=== PATIENT | male | born 1965 | race Caucasian/White ===

== ENCOUNTER 2019-04-21 09:04 | Inpatient (IN) | payer MEDICAID ==
[2019-04-21] MEDS: ONDANSETRON 4 MG INJ IV ×2 (10:07→14:52)
[2019-04-21] MEDS: morphine 4 MG/ML VIAL IV ×4 (10:07→21:33)
[2019-04-21 10:09] LABS: ADD MAN DIFF? NO
[2019-04-21 10:11] LABS: BASOPHILS % 0.3 % (0.0-2.0); EOSINOPHILS % 0.2 % (0.0-7.0); HEMATOCRIT 45.3 % (42.0-52.0); HEMOGLOBIN 15.7 g/dl (14.0-18.0); LYMPHOCYTES # 0.6 10^3/ul (0.8-2.9); LYMPHOCYTES % 4.9 % (15.0-51.0); MEAN CORPUSCULAR HEMOGLOBIN 32.8 pg (29.0-33.0); MEAN CORPUSCULAR HGB CONC 34.7 g/dl (32.0-37.0); MEAN CORPUSCULAR VOLUME 94.6 fl (82.0-101.0); MEAN PLATELET VOLUME 9.5 fl (7.4-10.4); NEUTROPHIL # 11.2 10^3/ul (1.6-7.5); NEUTROPHILS % 85.8 % (39.0-77.0); PLATELET COUNT 240 10^3/UL (140-415); RED BLOOD COUNT 4.79 10^6/ul (4.70-6.10); RED CELL DISTRIBUTION WIDTH 11.5 % (11.5-14.5)
[2019-04-21] MEDS: SOD CHLORIDE 0.9% 200 ML IV (10:14)
[2019-04-21 10:18] LABS: ADD UMIC YES; UR ASCORBIC ACID 40 mg/dL (NEGATIVE); UR BILIRUBIN (Dip) NEGATIVE (NEGATIVE); UR BLOOD (Dip) NEGATIVE (NEGATIVE); UR CLARITY CLEAR (CLEAR); UR COLOR AMBER (YELLOW); UR GLUCOSE (Dip) NEGATIVE (NEGATIVE); UR KETONES (Dip) 1+ mg/dL (NEGATIVE); UR LEUKOCYTE ESTERASE (Dip) NEGATIVE Leu/ul (NEGATIVE); UR MUCUS MANY /HPF (NONE SEEN); UR NITRITE (Dip) NEGATIVE (NEGATIVE); UR RBC 0 /HPF (0-5); UR SPECIFIC GRAVITY (Dip) 1.038 (1.003-1.030); UR TOTAL PROTEIN (Dip) 2+ mg/dl (NEGATIVE); UR UROBILINOGEN (Dip) NEGATIVE (NEGATIVE); UR WBC 1 /HPF (0-5)
[2019-04-21 10:29] LABS: ALANINE AMINOTRANSFERASE 115 IU/L (13-69); ALBUMIN 3.9 g/dl (3.3-4.9); ALBUMIN/GLOBULIN RATIO 1.05; ALKALINE PHOSPHATASE 75 IU/L (42-121); ANION GAP 11 (5-13); ASPARTATE AMINO TRANSFERASE 31 IU/L (15-46); BILIRUBIN,INDIRECT 1.1 mg/dl (0-1.1); BILIRUBIN,TOTAL 1.1 mg/dl (0.2-1.3); BLOOD UREA NITROGEN 13 mg/dl (7-20); CALCIUM 9.6 mg/dl (8.4-10.2); CARBON DIOXIDE 28 mmol/L (21-31); CHLORIDE 99 mmol/L (97-110); CREATININE 1.01 mg/dl (0.61-1.24); Estimated GFR > 60 mL/min (>60); GLUCOSE 122 mg/dl (70-220); LIPASE 47 U/L (23-300); POTASSIUM 3.7 mmol/L (3.5-5.1); SODIUM 138 mmol/L (135-144); TOTAL PROTEIN 7.6 g/dl (6.1-8.1)
[2019-04-21] MEDS: SOD CHLORIDE 0.9% 500 ML IV (11:00)
[2019-04-21] MEDS: PIPER-TAZO 3.375 GM IV (PMX) 100 ML IVPB ×2 (11:27→21:38)
[2019-04-21] MEDS ORDERED: ACETAMINOPHEN 325 MG TAB PO (12:00)
[2019-04-21] MEDS ORDERED: LORAZEPAM 2 MG INJ IV (12:30)
[2019-04-21] MEDS ORDERED: ONDANSETRON 4 MG INJ IV (12:30)
[2019-04-21] MEDS: metroNIDAZOLE 500 MG/NS (PMX) 100 ML IVPB (12:35)
[2019-04-21] MEDS: FAMOTIDINE 20 MG INJ IV ×2 (12:59→21:14)
[2019-04-21] MEDS: DEXTROSE 5%-0.45% NACL 1,000 ML IV ×2 (13:50→21:14)
[2019-04-21] MEDS ORDERED: PIPER-TAZO 3.375 GM IV (PMX) 100 ML (19:55)
[2019-04-21] MEDS ORDERED: DOCUSATE SODIUM 100 MG CAP PO (19:55)
[2019-04-21] MEDS: DOCUSATE SODIUM 100 MG CAP PO (21:00)
[2019-04-22] MEDS: morphine 4 MG/ML VIAL IV ×6 (01:42→23:39)
[2019-04-22] MEDS: DEXTROSE 5%-0.45% NACL 1,000 ML IV ×4 (05:21→23:40)
[2019-04-22] MEDS: PIPER-TAZO 3.375 GM IV (PMX) 100 ML IVPB ×3 (05:21→22:05)
[2019-04-22 05:47] LABS: ADD MAN DIFF? NO
[2019-04-22 05:51] LABS: WHITE BLOOD COUNT 10.1 10^3/ul (4.8-10.8)
[2019-04-22 05:51] LABS: BASOPHILS % 0.4 % (0.0-2.0); EOSINOPHILS # 0.1 10^3/ul (0.0-0.5); HEMOGLOBIN 14.1 g/dl (14.0-18.0); LYMPHOCYTES # 0.9 10^3/ul (0.8-2.9); LYMPHOCYTES % 9.3 % (15.0-51.0); MEAN CORPUSCULAR HEMOGLOBIN 32.4 pg (29.0-33.0); MEAN CORPUSCULAR HGB CONC 33.6 g/dl (32.0-37.0); MEAN CORPUSCULAR VOLUME 96.6 fl (82.0-101.0); MEAN PLATELET VOLUME 9.2 fl (7.4-10.4); MONOCYTES % 9.9 % (0.0-11.0); NEUTROPHIL # 7.9 10^3/ul (1.6-7.5); NEUTROPHILS % 78.7 % (39.0-77.0); PLATELET COUNT 219 10^3/UL (140-415); RED BLOOD COUNT 4.35 10^6/ul (4.70-6.10); RED CELL DISTRIBUTION WIDTH 11.5 % (11.5-14.5)
[2019-04-22 06:38] LABS: ALANINE AMINOTRANSFERASE 82 IU/L (13-69); ALBUMIN 3.2 g/dl (3.3-4.9); ALBUMIN/GLOBULIN RATIO 0.96; ALKALINE PHOSPHATASE 59 IU/L (42-121); ANION GAP 7 (5-13); ASPARTATE AMINO TRANSFERASE 28 IU/L (15-46); BILIRUBIN,INDIRECT 0.9 mg/dl (0-1.1); BILIRUBIN,TOTAL 0.9 mg/dl (0.2-1.3); BLOOD UREA NITROGEN 8 mg/dl (7-20); CALCIUM 8.4 mg/dl (8.4-10.2); CARBON DIOXIDE 31 mmol/L (21-31); CHLORIDE 98 mmol/L (97-110); CREATININE 0.86 mg/dl (0.61-1.24); Estimated GFR > 60 mL/min (>60); GLUCOSE 123 mg/dl (70-220); MAGNESIUM 1.9 mg/dl (1.7-2.5); PHOSPHORUS 3.2 mg/dl (2.5-4.9); POTASSIUM 3.3 mmol/L (3.5-5.1); SODIUM 136 mmol/L (135-144); TOTAL PROTEIN 6.5 g/dl (6.1-8.1)
[2019-04-22] MEDS: DOCUSATE SODIUM 100 MG CAP PO ×2 (08:37→22:08)
[2019-04-22] MEDS: FAMOTIDINE 20 MG INJ IV ×2 (08:39→22:05)
[2019-04-22] MEDS: ACETAMINOPHEN 325 MG TAB PO (15:39)
[2019-04-23] MEDS: morphine 4 MG/ML VIAL IV ×5 (03:53→20:54)
[2019-04-23 05:22] LABS: ADD MAN DIFF? NO
[2019-04-23 05:24] LABS: WHITE BLOOD COUNT 10.7 10^3/ul (4.8-10.8)
[2019-04-23 05:24] LABS: BASOPHILS % 0.4 % (0.0-2.0); EOSINOPHILS # 0.1 10^3/ul (0.0-0.5); EOSINOPHILS % 0.6 % (0.0-7.0); HEMATOCRIT 38.9 % (42.0-52.0); HEMOGLOBIN 13.5 g/dl (14.0-18.0); LYMPHOCYTES # 0.8 10^3/ul (0.8-2.9); LYMPHOCYTES % 7.4 % (15.0-51.0); MEAN CORPUSCULAR HEMOGLOBIN 32.8 pg (29.0-33.0); MEAN CORPUSCULAR HGB CONC 34.7 g/dl (32.0-37.0); MEAN CORPUSCULAR VOLUME 94.4 fl (82.0-101.0); MEAN PLATELET VOLUME 9.1 fl (7.4-10.4); MONOCYTE # 1.2 10^3/ul (0.3-0.9); MONOCYTES % 11.5 % (0.0-11.0); NEUTROPHIL # 8.5 10^3/ul (1.6-7.5); NEUTROPHILS % 79.1 % (39.0-77.0); PLATELET COUNT 247 10^3/UL (140-415); RED BLOOD COUNT 4.12 10^6/ul (4.70-6.10); RED CELL DISTRIBUTION WIDTH 11.3 % (11.5-14.5)
[2019-04-23 05:49] LABS: ALANINE AMINOTRANSFERASE 73 IU/L (13-69); ALBUMIN 3.1 g/dl (3.3-4.9); ALBUMIN/GLOBULIN RATIO 0.93; ALKALINE PHOSPHATASE 69 IU/L (42-121); ANION GAP 6 (5-13); ASPARTATE AMINO TRANSFERASE 25 IU/L (15-46); BILIRUBIN,INDIRECT 0.7 mg/dl (0-1.1); BILIRUBIN,TOTAL 0.7 mg/dl (0.2-1.3); BLOOD UREA NITROGEN 6 mg/dl (7-20); CALCIUM 8.5 mg/dl (8.4-10.2); CARBON DIOXIDE 31 mmol/L (21-31); CHLORIDE 98 mmol/L (97-110); CREATININE 0.85 mg/dl (0.61-1.24); Estimated GFR > 60 mL/min (>60); GLUCOSE 119 mg/dl (70-220); POTASSIUM 3.4 mmol/L (3.5-5.1); SODIUM 135 mmol/L (135-144); TOTAL PROTEIN 6.4 g/dl (6.1-8.1)
[2019-04-23] MEDS: PIPER-TAZO 3.375 GM IV (PMX) 100 ML IVPB ×3 (06:10→22:23)
[2019-04-23] MEDS: FAMOTIDINE 20 MG INJ IV (08:31)
[2019-04-23] MEDS: DEXTROSE 5%-0.45% NACL 1,000 ML IV ×2 (08:31→20:30)
[2019-04-23] MEDS: DOCUSATE SODIUM 100 MG CAP PO ×2 (08:34→20:46)
[2019-04-23] MEDS: POTASSIUM CHLORIDE (SR) 20 MEQ TAB PO ×2 (11:55→15:57)
[2019-04-23] MEDS: CHLORDIAZEPOXIDE 25 MG CAP PO ×2 (12:24→20:46)
[2019-04-23] MEDS: MULTIVITAMINS 10 ML, THIAMINE 100 MG, FOLIC ACID 1 MG in SOD CHLORIDE 0.9% 1,000 ML IVPB (12:52)
[2019-04-23] MEDS: FAMOTIDINE 20 MG TAB PO (20:46)
[2019-04-24] MEDS: morphine 4 MG/ML VIAL IV ×6 (00:57→23:16)
[2019-04-24] MEDS: DEXTROSE 5%-0.45% NACL 1,000 ML IV (05:14)
[2019-04-24] MEDS: PIPER-TAZO 3.375 GM IV (PMX) 100 ML IVPB ×3 (05:14→22:45)
[2019-04-24 07:16] LABS: ADD MAN DIFF? NO
[2019-04-24 07:24] LABS: WHITE BLOOD COUNT 12.8 10^3/ul (4.8-10.8)
[2019-04-24 07:24] LABS: BASOPHIL # 0.1 10^3/ul (0.0-0.1); BASOPHILS % 0.5 % (0.0-2.0); EOSINOPHILS # 0.1 10^3/ul (0.0-0.5); EOSINOPHILS % 0.5 % (0.0-7.0); HEMATOCRIT 39.9 % (42.0-52.0); HEMOGLOBIN 13.8 g/dl (14.0-18.0); LYMPHOCYTES % 7.6 % (15.0-51.0); MEAN CORPUSCULAR HEMOGLOBIN 32.4 pg (29.0-33.0); MEAN CORPUSCULAR HGB CONC 34.6 g/dl (32.0-37.0); MEAN CORPUSCULAR VOLUME 93.7 fl (82.0-101.0); MEAN PLATELET VOLUME 9.1 fl (7.4-10.4); MONOCYTE # 1.5 10^3/ul (0.3-0.9); MONOCYTES % 11.6 % (0.0-11.0); NEUTROPHIL # 9.8 10^3/ul (1.6-7.5); NEUTROPHILS % 76.8 % (39.0-77.0); PLATELET COUNT 291 10^3/UL (140-415); RED BLOOD COUNT 4.26 10^6/ul (4.70-6.10); RED CELL DISTRIBUTION WIDTH 11.2 % (11.5-14.5)
[2019-04-24 07:51] LABS: ANION GAP 7 (5-13); BLOOD UREA NITROGEN 5 mg/dl (7-20); CALCIUM 8.7 mg/dl (8.4-10.2); CARBON DIOXIDE 29 mmol/L (21-31); CHLORIDE 98 mmol/L (97-110); CREATININE 0.86 mg/dl (0.61-1.24); Estimated GFR > 60 mL/min (>60); GLUCOSE 152 mg/dl (70-220); PHOSPHORUS 3.4 mg/dl (2.5-4.9); POTASSIUM 3.6 mmol/L (3.5-5.1); SODIUM 134 mmol/L (135-144)
[2019-04-24] MEDS: MULTIVITAMINS 10 ML, THIAMINE 100 MG, FOLIC ACID 1 MG in SOD CHLORIDE 0.9% 1,000 ML IVPB (08:45)
[2019-04-24] MEDS: DOCUSATE SODIUM 100 MG CAP PO ×2 (08:45→20:06)
[2019-04-24] MEDS: FAMOTIDINE 20 MG TAB PO ×2 (08:45→20:06)
[2019-04-24] MEDS: CHLORDIAZEPOXIDE 25 MG CAP PO ×2 (08:45→20:05)
[2019-04-24] MEDS ORDERED: DOCUSATE SODIUM 100 MG CAP PO (12:30)
[2019-04-24 12:42] LABS: HEPATITIS B SURFACE ANTIGEN NEGATIVE (NEGATIVE)
[2019-04-24 12:59] LABS: HEPATITIS C VIRAL ANTIBODY NEGATIVE (NEGATIVE)
[2019-04-24] MEDS: POTASSIUM CHLORIDE (SR) 20 MEQ TAB PO (14:26)
[2019-04-24] MEDS: ACETAMINOPHEN 325 MG TAB PO (20:06)
[2019-04-25 00:12] LABS: ADD UMIC NO; UR ASCORBIC ACID NEGATIVE (NEGATIVE); UR BILIRUBIN (Dip) NEGATIVE (NEGATIVE); UR BLOOD (Dip) NEGATIVE (NEGATIVE); UR CLARITY CLEAR (CLEAR); UR COLOR YELLOW (YELLOW); UR GLUCOSE (Dip) NEGATIVE (NEGATIVE); UR KETONES (Dip) NEGATIVE (NEGATIVE); UR LEUKOCYTE ESTERASE (Dip) NEGATIVE Leu/ul (NEGATIVE); UR NITRITE (Dip) NEGATIVE (NEGATIVE); UR TOTAL PROTEIN (Dip) NEGATIVE (NEGATIVE); UR UROBILINOGEN (Dip) 2+ mg/dL (NEGATIVE)
[2019-04-25] MEDS ORDERED: VANCOMYCIN IV PER PHARMACY XX (02:30)
[2019-04-25] MEDS: ACETAMINOPHEN 325 MG TAB PO ×2 (02:32→15:36)
[2019-04-25] MEDS: VANCOMYCIN 1.5 GM/NS 250 ML 250 ML IVPB (03:02)
[2019-04-25] MEDS: morphine 4 MG/ML VIAL IV ×5 (03:25→22:48)
[2019-04-25 05:45] LABS: ADD MAN DIFF? NO
[2019-04-25 05:54] LABS: WHITE BLOOD COUNT 15.7 10^3/ul (4.8-10.8)
[2019-04-25 05:54] LABS: ABNORMAL IP MESSAGE 1; BASOPHIL # 0.1 10^3/ul (0.0-0.1); BASOPHILS % 0.3 % (0.0-2.0); EOSINOPHILS # 0.1 10^3/ul (0.0-0.5); EOSINOPHILS % 0.4 % (0.0-7.0); HEMATOCRIT 42.5 % (42.0-52.0); HEMOGLOBIN 14.6 g/dl (14.0-18.0); LYMPHOCYTES # 1.3 10^3/ul (0.8-2.9); LYMPHOCYTES % 8.4 % (15.0-51.0); MEAN CORPUSCULAR HEMOGLOBIN 32.2 pg (29.0-33.0); MEAN CORPUSCULAR HGB CONC 34.4 g/dl (32.0-37.0); MEAN CORPUSCULAR VOLUME 93.8 fl (82.0-101.0); MONOCYTE # 1.7 10^3/ul (0.3-0.9); MONOCYTES % 10.5 % (0.0-11.0); NEUTROPHIL # 12.1 10^3/ul (1.6-7.5); NEUTROPHILS % 77.6 % (39.0-77.0); PLATELET COUNT 308 10^3/UL (140-415); POSITIVE DIFF @See below; RED BLOOD COUNT 4.53 10^6/ul (4.70-6.10); RED CELL DISTRIBUTION WIDTH 11.4 % (11.5-14.5)
[2019-04-25 06:18] LABS: ANION GAP 8 (5-13); BLOOD UREA NITROGEN 5 mg/dl (7-20); CARBON DIOXIDE 29 mmol/L (21-31); CHLORIDE 98 mmol/L (97-110); CREATININE 0.81 mg/dl (0.61-1.24); Estimated GFR > 60 mL/min (>60); GLUCOSE 103 mg/dl (70-220); POTASSIUM 3.8 mmol/L (3.5-5.1); SODIUM 135 mmol/L (135-144)
[2019-04-25] MEDS: PIPER-TAZO 3.375 GM IV (PMX) 100 ML IVPB ×3 (06:30→22:32)
[2019-04-25 07:21] LABS: ERYTHROCYTE SEDIMENTATION RATE 46 mm/Hr (0-20)
[2019-04-25] MEDS: IOHEXOL 300MG/ML 150 ML BTL (09:08)
[2019-04-25] MEDS: SOD CHLORIDE 0.9% 100 ML (09:08)
[2019-04-25] MEDS: MULTIVITAMINS 10 ML, THIAMINE 100 MG, FOLIC ACID 1 MG in SOD CHLORIDE 0.9% 1,000 ML IVPB (09:55)
[2019-04-25] MEDS: DOCUSATE SODIUM 100 MG CAP PO ×2 (09:55→21:58)
[2019-04-25] MEDS: CHLORDIAZEPOXIDE 25 MG CAP PO ×2 (09:55→21:58)
[2019-04-25] MEDS: FAMOTIDINE 20 MG TAB PO ×2 (09:55→21:59)
[2019-04-25] MEDS: VANCOMYCIN 1 GM 250 ML IVPB (16:17)
[2019-04-26] MEDS: ACETAMINOPHEN 325 MG TAB PO (02:48)
[2019-04-26] MEDS: VANCOMYCIN 1 GM 250 ML IVPB ×2 (02:49→17:03)
[2019-04-26] MEDS: morphine 4 MG/ML VIAL IV ×3 (03:08→20:40)
[2019-04-26 05:20] LABS: ADD MAN DIFF? NO
[2019-04-26 05:30] LABS: WHITE BLOOD COUNT 17.1 10^3/ul (4.8-10.8)
[2019-04-26 05:30] LABS: BASOPHIL # 0.1 10^3/ul (0.0-0.1); BASOPHILS % 0.4 % (0.0-2.0); EOSINOPHILS # 0.2 10^3/ul (0.0-0.5); EOSINOPHILS % 1.1 % (0.0-7.0); HEMATOCRIT 37.9 % (42.0-52.0); LYMPHOCYTES # 1.3 10^3/ul (0.8-2.9); LYMPHOCYTES % 7.9 % (15.0-51.0); MEAN CORPUSCULAR HEMOGLOBIN 32.1 pg (29.0-33.0); MEAN CORPUSCULAR HGB CONC 34.3 g/dl (32.0-37.0); MEAN CORPUSCULAR VOLUME 93.6 fl (82.0-101.0); MEAN PLATELET VOLUME 9.1 fl (7.4-10.4); MONOCYTE # 1.3 10^3/ul (0.3-0.9); MONOCYTES % 7.7 % (0.0-11.0); NEUTROPHIL # 13.8 10^3/ul (1.6-7.5); PLATELET COUNT 233 10^3/UL (140-415); RED BLOOD COUNT 4.05 10^6/ul (4.70-6.10); RED CELL DISTRIBUTION WIDTH 11.3 % (11.5-14.5)
[2019-04-26] MEDS: PIPER-TAZO 3.375 GM IV (PMX) 100 ML IVPB ×3 (05:36→22:01)
[2019-04-26 05:52] LABS: ALANINE AMINOTRANSFERASE 61 IU/L (13-69); ALBUMIN 2.9 g/dl (3.3-4.9); ALBUMIN/GLOBULIN RATIO 0.96; ALKALINE PHOSPHATASE 95 IU/L (42-121); ANION GAP 7 (5-13); ASPARTATE AMINO TRANSFERASE 33 IU/L (15-46); BILIRUBIN,INDIRECT 0.7 mg/dl (0-1.1); BILIRUBIN,TOTAL 0.7 mg/dl (0.2-1.3); BLOOD UREA NITROGEN 6 mg/dl (7-20); CALCIUM 8.3 mg/dl (8.4-10.2); CARBON DIOXIDE 28 mmol/L (21-31); CHLORIDE 100 mmol/L (97-110); CREATININE 0.71 mg/dl (0.61-1.24); Estimated GFR > 60 mL/min (>60); GLUCOSE 87 mg/dl (70-220); POTASSIUM 3.3 mmol/L (3.5-5.1); SODIUM 135 mmol/L (135-144); TOTAL PROTEIN 5.9 g/dl (6.1-8.1)
[2019-04-26 08:01] LABS: ERYTHROCYTE SEDIMENTATION RATE 51 mm/Hr (0-20)
[2019-04-26] MEDS: DOCUSATE SODIUM 100 MG CAP PO ×2 (08:39→20:42)
[2019-04-26] MEDS: CHLORDIAZEPOXIDE 25 MG CAP PO (08:39)
[2019-04-26] MEDS: MULTIVITAMINS 10 ML, THIAMINE 100 MG, FOLIC ACID 1 MG in SOD CHLORIDE 0.9% 1,000 ML IVPB (08:39)
[2019-04-26] MEDS: THIAMINE 100 MG TAB PO (08:39)
[2019-04-26] MEDS: FAMOTIDINE 20 MG TAB PO ×2 (08:39→20:42)
[2019-04-26] MEDS ORDERED: DIPHENHYDRAMINE 50 MG INJ IV (11:30)
[2019-04-26] MEDS: metroNIDAZOLE 500 MG/NS (PMX) 100 ML IVPB ×2 (11:34→22:49)
[2019-04-26] MEDS: SOD CHLORIDE 0.9% 1,000 ML IV ×2 (14:07→19:30)
[2019-04-26] MEDS: DIPHENHYDRAMINE 1%/ZINC 28.3 GM CR TOP ×2 (14:08→17:03)
[2019-04-26 15:36] LABS: VANCOMYCIN,TROUGH < 5.0 ug/ml (10.0-20.0)
[2019-04-26] MEDS: POTASSIUM CHLORIDE (SR) 20 MEQ TAB PO (17:02)
[2019-04-27] MEDS: DIPHENHYDRAMINE 1%/ZINC 28.3 GM CR TOP ×4 (00:32→17:42)
[2019-04-27] MEDS: VANCOMYCIN 1 GM 250 ML IVPB ×3 (01:29→16:15)
[2019-04-27] MEDS: morphine 4 MG/ML VIAL IV (02:17)
[2019-04-27] MEDS: SOD CHLORIDE 0.9% 1,000 ML IV ×3 (03:30→19:30)
[2019-04-27] MEDS: metroNIDAZOLE 500 MG/NS (PMX) 100 ML IVPB ×2 (05:11→14:27)
[2019-04-27 06:08] LABS: ADD MAN DIFF? NO
[2019-04-27 06:30] LABS: WHITE BLOOD COUNT 14.8 10^3/ul (4.8-10.8)
[2019-04-27 06:30] LABS: BASOPHIL # 0.1 10^3/ul (0.0-0.1); BASOPHILS % 0.5 % (0.0-2.0); EOSINOPHILS # 0.2 10^3/ul (0.0-0.5); EOSINOPHILS % 1.5 % (0.0-7.0); HEMATOCRIT 38.6 % (42.0-52.0); HEMOGLOBIN 13.2 g/dl (14.0-18.0); LYMPHOCYTES # 1.1 10^3/ul (0.8-2.9); LYMPHOCYTES % 7.7 % (15.0-51.0); MEAN CORPUSCULAR HEMOGLOBIN 32.8 pg (29.0-33.0); MEAN CORPUSCULAR HGB CONC 34.2 g/dl (32.0-37.0); MEAN PLATELET VOLUME 9.6 fl (7.4-10.4); MONOCYTE # 0.9 10^3/ul (0.3-0.9); MONOCYTES % 5.9 % (0.0-11.0); NEUTROPHIL # 12.2 10^3/ul (1.6-7.5); NEUTROPHILS % 82.6 % (39.0-77.0); PLATELET COUNT 238 10^3/UL (140-415); RED BLOOD COUNT 4.02 10^6/ul (4.70-6.10); RED CELL DISTRIBUTION WIDTH 11.2 % (11.5-14.5)
[2019-04-27] MEDS: PIPER-TAZO 3.375 GM IV (PMX) 100 ML IVPB ×2 (06:33→13:28)
[2019-04-27 06:37] LABS: ANION GAP 4 (5-13); BLOOD UREA NITROGEN 7 mg/dl (7-20); CALCIUM 8.1 mg/dl (8.4-10.2); CARBON DIOXIDE 28 mmol/L (21-31); CHLORIDE 104 mmol/L (97-110); CREATININE 0.62 mg/dl (0.61-1.24); Estimated GFR > 60 mL/min (>60); GLUCOSE 136 mg/dl (70-220); POTASSIUM 3.3 mmol/L (3.5-5.1); SODIUM 136 mmol/L (135-144)
[2019-04-27] MEDS: FAMOTIDINE 20 MG TAB PO ×2 (08:50→20:46)
[2019-04-27] MEDS: FOLIC ACID 1 MG TAB PO (08:50)
[2019-04-27] MEDS: THIAMINE 100 MG TAB PO (08:50)
[2019-04-27] MEDS: DOCUSATE SODIUM 100 MG CAP PO ×2 (08:56→20:48)
[2019-04-27] MEDS: POTASSIUM CHLORIDE (SR) 20 MEQ TAB PO (14:27)
[2019-04-27] MEDS ORDERED: HYDROCORTISONE 1% 28 GM CR TOP (15:00)
[2019-04-27] MEDS: HYDROCORTISONE 1% 28 GM CR TOP ×2 (18:21→22:14)
[2019-04-27] MEDS: FLUCONAZOLE 100 MG/50 ML (PMX) 50 ML IVPB (19:00)
[2019-04-27] MEDS: MEROPENEM 1 GM/50ML(PMX) 50 ML IVPB (22:08)
[2019-04-28] MEDS: DIPHENHYDRAMINE 1%/ZINC 28.3 GM CR TOP ×4 (00:08→17:48)
[2019-04-28 01:08] LABS: VANCOMYCIN,TROUGH 9.7 ug/ml (10.0-20.0)
[2019-04-28] MEDS: VANCOMYCIN 1 GM 250 ML IVPB (01:23)
[2019-04-28] MEDS: SOD CHLORIDE 0.9% 1,000 ML IV ×3 (03:52→17:48)
[2019-04-28] MEDS: MEROPENEM 1 GM/50ML(PMX) 50 ML IVPB ×3 (05:54→22:20)
[2019-04-28 06:01] LABS: ADD MAN DIFF? NO
[2019-04-28 06:04] LABS: BASOPHIL # 0.1 10^3/ul (0.0-0.1); BASOPHILS % 0.5 % (0.0-2.0); EOSINOPHILS # 0.3 10^3/ul (0.0-0.5); EOSINOPHILS % 2.4 % (0.0-7.0); HEMATOCRIT 40.9 % (42.0-52.0); HEMOGLOBIN 13.8 g/dl (14.0-18.0); LYMPHOCYTES # 1.2 10^3/ul (0.8-2.9); LYMPHOCYTES % 10.4 % (15.0-51.0); MEAN CORPUSCULAR HEMOGLOBIN 32.3 pg (29.0-33.0); MEAN CORPUSCULAR HGB CONC 33.7 g/dl (32.0-37.0); MEAN CORPUSCULAR VOLUME 95.8 fl (82.0-101.0); MEAN PLATELET VOLUME 9.1 fl (7.4-10.4); MONOCYTE # 0.8 10^3/ul (0.3-0.9); MONOCYTES % 6.8 % (0.0-11.0); NEUTROPHIL # 9.2 10^3/ul (1.6-7.5); PLATELET COUNT 318 10^3/UL (140-415); RED BLOOD COUNT 4.27 10^6/ul (4.70-6.10); RED CELL DISTRIBUTION WIDTH 11.3 % (11.5-14.5)
[2019-04-28 06:04] LABS: WHITE BLOOD COUNT 11.8 10^3/ul (4.8-10.8)
[2019-04-28 06:29] LABS: ANION GAP 8 (5-13); BLOOD UREA NITROGEN 4 mg/dl (7-20); CALCIUM 8.8 mg/dl (8.4-10.2); CARBON DIOXIDE 28 mmol/L (21-31); CHLORIDE 106 mmol/L (97-110); CREATININE 0.72 mg/dl (0.61-1.24); Estimated GFR > 60 mL/min (>60); GLUCOSE 103 mg/dl (70-220); MAGNESIUM 2.2 mg/dl (1.7-2.5); POTASSIUM 3.7 mmol/L (3.5-5.1); SODIUM 142 mmol/L (135-144)
[2019-04-28 06:30] LABS: INR 1.15; PROTIME 14.8 Sec (11.9-14.9); PT RATIO 1.2
[2019-04-28] MEDS: THIAMINE 100 MG TAB PO (08:03)
[2019-04-28] MEDS: FAMOTIDINE 20 MG TAB PO ×2 (08:03→20:41)
[2019-04-28] MEDS: DOCUSATE SODIUM 100 MG CAP PO ×2 (08:03→20:40)
[2019-04-28] MEDS: FOLIC ACID 1 MG TAB PO (08:03)
[2019-04-28] MEDS: VANCOMYCIN 1.25 GM/NS 250 ML 250 ML IVPB ×2 (08:51→17:48)
[2019-04-28] MEDS: HYDROCORTISONE 1% 28 GM CR TOP ×2 (08:53→20:41)
[2019-04-28] MEDS: MIDAZOLAM 1 MG/ML 2 ML INJ (09:08)
[2019-04-28] MEDS: FENTAnyl 50 MCG/ML VIAL ×2 (09:08→13:49)
[2019-04-28] MEDS: LIDOCAINE 1% (MDV) 20 ML INJ ×2 (09:25→15:12)
[2019-04-28] MEDS: FLUCONAZOLE 100 MG/50 ML (PMX) 50 ML IVPB (16:32)
[2019-04-28] MEDS: morphine 4 MG/ML VIAL IV (17:48)
[2019-04-28] MEDS: ACETAMINOPHEN 325 MG TAB PO (20:40)
[2019-04-29] MEDS: DIPHENHYDRAMINE 1%/ZINC 28.3 GM CR TOP ×4 (00:11→17:36)
[2019-04-29] MEDS: SOD CHLORIDE 0.9% 1,000 ML IV (00:13)
[2019-04-29] MEDS: VANCOMYCIN 1.25 GM/NS 250 ML 250 ML IVPB ×3 (01:14→17:37)
[2019-04-29] MEDS: ALTEPLASE (CATHFLO) 2 MG INJ CATHETER (06:21)
[2019-04-29] MEDS: MEROPENEM 1 GM/50ML(PMX) 50 ML IVPB ×3 (06:21→21:34)
[2019-04-29] MEDS: THIAMINE 100 MG TAB PO (09:07)
[2019-04-29] MEDS: FOLIC ACID 1 MG TAB PO (09:07)
[2019-04-29] MEDS: DOCUSATE SODIUM 100 MG CAP PO ×2 (09:07→21:34)
[2019-04-29] MEDS: FAMOTIDINE 20 MG TAB PO ×2 (09:07→21:34)
[2019-04-29] MEDS: HYDROCORTISONE 1% 28 GM CR TOP ×2 (09:07→21:35)
[2019-04-29 14:10] LABS: ADD MAN DIFF? NO
[2019-04-29 14:12] LABS: WHITE BLOOD COUNT 9.4 10^3/ul (4.8-10.8)
[2019-04-29 14:12] LABS: BASOPHIL # 0.1 10^3/ul (0.0-0.1); EOSINOPHILS # 0.3 10^3/ul (0.0-0.5); EOSINOPHILS % 3.1 % (0.0-7.0); HEMATOCRIT 41.9 % (42.0-52.0); HEMOGLOBIN 14.2 g/dl (14.0-18.0); LYMPHOCYTES # 1.1 10^3/ul (0.8-2.9); LYMPHOCYTES % 11.7 % (15.0-51.0); MEAN CORPUSCULAR HEMOGLOBIN 32.3 pg (29.0-33.0); MEAN CORPUSCULAR HGB CONC 33.9 g/dl (32.0-37.0); MEAN CORPUSCULAR VOLUME 95.4 fl (82.0-101.0); MEAN PLATELET VOLUME 9.2 fl (7.4-10.4); MONOCYTE # 0.6 10^3/ul (0.3-0.9); MONOCYTES % 6.5 % (0.0-11.0); NEUTROPHILS % 74.7 % (39.0-77.0); PLATELET COUNT 372 10^3/UL (140-415); RED BLOOD COUNT 4.39 10^6/ul (4.70-6.10); RED CELL DISTRIBUTION WIDTH 11.3 % (11.5-14.5)
[2019-04-29 14:33] LABS: ANION GAP 7 (5-13); BLOOD UREA NITROGEN 6 mg/dl (7-20); CALCIUM 8.4 mg/dl (8.4-10.2); CARBON DIOXIDE 27 mmol/L (21-31); CHLORIDE 104 mmol/L (97-110); CREATININE 0.61 mg/dl (0.61-1.24); Estimated GFR > 60 mL/min (>60); GLUCOSE 106 mg/dl (70-220); POTASSIUM 3.9 mmol/L (3.5-5.1); SODIUM 138 mmol/L (135-144)
[2019-04-29] MEDS: FLUCONAZOLE 100 MG/50 ML (PMX) 50 ML IVPB (16:27)
[2019-04-30] MEDS: DIPHENHYDRAMINE 1%/ZINC 28.3 GM CR TOP ×4 (00:09→17:24)
[2019-04-30 01:25] LABS: VANCOMYCIN,TROUGH 15.7 ug/ml (10.0-20.0)
[2019-04-30] MEDS: VANCOMYCIN 1.25 GM/NS 250 ML 250 ML IVPB ×3 (01:32→17:00)
[2019-04-30] MEDS: ACETAMINOPHEN 325 MG TAB PO (01:38)
[2019-04-30] MEDS: MEROPENEM 1 GM/50ML(PMX) 50 ML IVPB ×2 (05:32→14:00)
[2019-04-30] MEDS: HYDROCORTISONE 1% 28 GM CR TOP (09:41)
[2019-04-30] MEDS: THIAMINE 100 MG TAB PO (09:41)
[2019-04-30] MEDS: DOCUSATE SODIUM 100 MG CAP PO (09:41)
[2019-04-30] MEDS: FOLIC ACID 1 MG TAB PO (09:42)
[2019-04-30] MEDS: FAMOTIDINE 20 MG TAB PO (09:42)
[2019-04-30] MEDS: FLUCONAZOLE 100 MG TAB PO (17:00)
== END 2019-04-30 17:45 | disposition home or self-care (01) | DRG 872 ==
LOC: E/R 09:04 → PP2 11:55
PROC: 02HV33Z Insertion of Infusion Device into Superior Vena Cava, Percutaneous Approach (ICD-10-PCS; 2019-04-25)
PROC: B548ZZA Ultrasonography of Superior Vena Cava, Guidance (ICD-10-PCS; 2019-04-25)
PROC: 0W9J30Z Drainage of Pelvic Cavity with Drainage Device, Percutaneous Approach (ICD-10-PCS; principal; 2019-04-28)
DX: A41.9 Sepsis, unspecified organism (principal); K57.20 Diverticulitis of large intestine with perforation and abscess without bleeding; I45.2 Bifascicular block; F17.200 Nicotine dependence, unspecified, uncomplicated; B96.20 Unspecified Escherichia coli [E. coli] as the cause of diseases classified elsewhere; Z72.89 Other problems related to lifestyle
CPT/HCPCS: 36415; 36573; 71045; 74176; 74177; 77012; 80048; 80053; 80202; 81001; 81003; 82962; 83690; 83735; 84100; 85025; 85610; 85651; 86803; 87040-91; 87070; 87086; 87340; 93005; 96374; 96375; 99285-25